=== PATIENT | female | born 1965 | race Caucasian/White ===

== ENCOUNTER → 2024-07-09 11:57 | Outpatient (CLI) | payer OTHER, SELFPAY ==
--- NOTE | 2024-07-09 12:04 | DI.RAD.S_ITS ---
PROCEDURE: XR ELBOW RT MIN 3V INDICATIONS: Pain in right elbow TECHNIQUE: 3 views of the elbow were acquired. COMPARISON: None. FINDINGS: Bones: Minimal cortical discontinuity with step-off noted along the posterolateral margin of the radial head may be consistent with a nondisplaced fracture. No suspicious bony lesions. Soft tissues: No elbow joint effusion. No suspicious soft tissue calcifications. IMPRESSION: Cortical discontinuity of the radial head suspicious for small nondisplaced fracture. No evidence of joint effusion. Dictated by: Mc Be M.D. on 07/09/2024 at 16:39 Approved by: Mc Be M.D. on 07/09/2024 at 16:42
== END ==
PROVIDERS: Referring Provider Nurse Practitioner Family; Visit Provider Nurse Practitioner Family
DX: M25.521 Pain in right elbow (principal)
CPT/HCPCS: 73070